=== PATIENT | male | born 1960 | race Two or more races ===

== ENCOUNTER 2025-07-23 12:50 | Emergency (ER) | payer MEDICAID, SELFPAY ==
--- NOTE | 2025-07-23 12:54 | EKG_ITS ---
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
[2025-07-23 13:13] VITALS: BP 134/87; PULSE 108; RESP 18; TEMP 36.7; O2SAT 95; BMI 30.1
--- NOTE | 2025-07-23 13:30 | XR_ITS ---
EXAMINATION: AP chest single view TECHNIQUE: AP portable upright chest single view Date and time: July 23, 2025, 1333 hours INDICATIONS: Syncopal episode today. FINDINGS: Minor scarring in the lingular segment No aspiration pneumonia. Normal heart size IMPRESSION: No aspiration pneumonia
--- NOTE | 2025-07-23 13:31 | PD.EDSYNC ---
ED Syncope RME/HPI General Chief Complaint: Syncope / Near Syncope Stated Complaint: SENT BY PMD FOR SYNCOPAL EPISODE Time Seen by Provider: 07/23/25 13:23 Arrival date/time: 07/23/25 12:50 65-year-old male patient with with significant history of hypertension, taking lisinopril, was brought in by family after patient was seen by PCP for syncope. Patient was talking to his brother while in the [place], suddenly developed dizziness and syncope. Incident happened 2 hours ago. Currently patient is not having any headache no chest pain no abdominal pain no vomiting no diarrhea. Patient is ambulatory. Patient denies any similar episode in the past. Related Data Allergies Allergy/AdvReac Type Severity Reaction Status Date / Time No Known Allergies Allergy Verified 07/23/25 12:51 Review of Systems Review of Systems Narrative Review of Systems: Review of system reviewed and within normal limits except mentioned in HPI ED Exam Narrative Physical exam: VITAL SIGNS: Reviewed. GENERAL APPEARANCE: Alert and interactive, follows commands, no acute distress, HEAD AND FACE: Non-traumatic. ENT: PERRL, pink conjunctivitis, eyelid no trauma, Mucous membrane moist. NECK: Supple, nontender, no nuchal rigidity. CHEST: No tenderness, no crepitus, no paradoxical movement, no retractions. LUNGS: Clear, well ventilated, symmetric, no rales, no wheezing, no ronchi, no stridor, good breath sounds bilaterally. HEART: Regular rate, regular rhythm, no murmur, no gallops. ABDOMEN: Soft, positive bowel sounds, nondistended, no guarding, nontender, no rebound, no masses, RECTAL: Deferred. GENITAL: Deferred. NEUROLOGICAL: Gross motor function intact sensory function intact, Appropriate for age. MUSCULOSKELETAL: low back nontender, full range of motion. EXTREMITIES: Nontender, full range of motion. SKIN: Color pink, dry, no rash, no lacerations, no abrasions, no contusions. LYMPHATICS: Deferred. Course Quality Measures none Orders Category Date Time Status EKG (ED ONLY) *Do not use* NOW Care 07/23/25 12:[address] head/brain wo con Stat Exams 07/23/25 13:33 Completed EKG (ED Only) Stat Exams 07/23/25 12:54 Draft XR chest 1V Stat Exams 07/23/25 13:30 Completed B-Type Natriuretic Peptide Stat Lab 07/23/25 13:42 Completed CBC Stat Lab 07/23/25 13:42 Completed Comprehensive Metabolic Panel Stat Lab 07/23/25 13:42 Completed Partial Thromboplastin Time Stat Lab 07/23/25 13:42 Completed Troponin I Stat Lab 07/23/25 13:42 Completed Urinalysis, C/S if Indicated Stat Lab 07/23/25 14:10 Completed Ringers Lactated 1000 ml [Lactated Ringers] 1,000 ml Med 07/23/25 13:30 Discontinued IV 999 mls/hr Vital Signs Vital signs: Vital Signs Temperature 98.1 F 07/23/25 13:13 Pulse Rate 108 H 07/23/25 13:13 Respiratory Rate 18 07/23/25 13:13 Blood Pressure 134/87 H 07/23/25 13:13 Pulse Oximetry (%) 95 07/23/25 13:13 Oxygen Delivery Method Room Air 07/23/25 13:13 Syncope MDM Narrative MDM Narrative:: 07/23/25 12:50 65-year-old male patient with with significant history of hypertension, taking lisinopril, was brought in by family after patient was seen by PCP for syncope. Patient was talking to his brother while in the [place], suddenly developed dizziness and syncope. Incident happened 2 hours ago. Currently patient is not having any headache no chest pain no abdominal pain no vomiting no diarrhea. Patient is ambulatory. Patient denies any similar episode in the past. Patient's workup today all came back unremarkable except for a blood sugar of 307 with no sign of diabetic ketoacidosis. Patient's EKG showed sinus tachycardia, ventricular rate of 115 bpm, no ST segment elevation or depression noted. Urinalysis no UTI CT scan of the head came back unremarkable I personally reviewed and interpreted the x-ray of this patient. There is no acute abnormalities found, no infiltrates no pneumothorax no hemothorax normal chest x-ray. Review of other structures was without significant abnormal findings also. I additionally reviewed the radiologist report and agree with the interpretation. Patient heart rate was noted to be 108 prior to discharge. Patient is not having any symptoms ambulatory to the restroom with no recurrence of syncope or near syncope. Patient and family was advised to follow-up closely with PCP for elevated blood sugar that was seen today. Patient is probably having diabetes or prediabetic. Patient agrees with the plan. Stable discharge home Patient data External records reviewed:: None Clinical information provided by:: patient Social determinants that could affect healthcare access:: none Patient has the following chronic illnesses:: Hypertension How is presenting disease/condition affected by chronic disease/condition?: exacerbated by Evaluation data The following diagnostics were reviewed and interpreted by me:: lab results, radiology exam(s) and EKG tracing(s) Lab and/or radiology exams considered but not ordered:: None Interpretation Summary: See results MDM Medications / Prescriptions Medications or Prescriptions considered but not ordered:: None Medication administrations:: Medication Administration History Discontinued Medications Lactated Ringer's (Lactated Ringers) 1,000 mls @ 999 mls/hr IV .Q1H1M ONE Stop: 07/23/25 14:30 Last Admin: 07/23/25 14:02 Dose: 999 mls/hr Documented By: KLARISSA IV fluids Consultations Consultation(s) initiated? (list below): No Diagnosis Syncope Differential Diagnosis: syncope due to orthostatic hypotension, vasovagal syncope and dehydration Most likely diagnosis given after review of the tests above:: Vasovagal syncope, Admission Indicated Admission indicated?: not indicated Admission Request Was there a request for admission?: No Disposition Plan Disposition Plan: Discharge Discharge Attestation Discharge Attestation: The patient and all family members were given an opportunity to ask questions and understood the discharge instructions. Discharge instructions specifically effects, indications for sooner follow up or return to the emergency department, and the expected course of current diagnosis. Patient condition: Stable Discharge Plan Plan Patient Disposition: HOME (Self Care) Discharge Disposition comment: stable Prescriptions/Referrals Referrals: Kathy Mares SHEET MET[employer] ENGINEER [Primary Care Provider] - In 1 week Problem List Clinical Impression: Vasovagal syncope Patient/Caregiver Discharge Instructions Discharge Activity: activity as tolerated Education Materials: Understanding Vasovagal Syncope Additional Instructions: Thank you for the opportunity for serving you today. You are stable for discharged . You are advised to: Follow-up with your PCP in 1 to 2 days Return to ED for worsening of symptoms Print Language: Hungarian Stand Alone Forms: Tara Award Info., Patient Portal Info Letter
--- NOTE | 2025-07-23 13:33 | XR_ITS ---
Examination: CT brain head without contrast. 2-D sagittal coronal reconstructions Date and time of exam: July 23, 2025, 1420 hours INDICATIONS: Syncopal episode patient fell today with injury to the head, head pain CTDI: vol (mGy): 50.3 DLP: (mGycm): 986 Technique: Multiple CT axial sections of the brain have been obtained, 5 mm slice thickness. Contrast has not been administered. 2-D sagittal, coronal reconstructions have been obtained Low dose protocols were performed. One or more of the following dose reduction techniques were used; automated exposure control, adjustment of the mA and/or KV according to patient size, use of iterative reconstruction technique. Findings: No significant ventricular enlargement. Intra-axial or extra-axial hemorrhage density is not seen. No mass effect or midline shift Basal cisterns are not remarkable. Fourth ventricle is midline. Cranial vault intact. Impression: Negative for acute hemorrhage, mass effect or midline shift
[2025-07-23 13:59] LABS: Basophils # (Auto) 0.0 Thou/mm3 (0.0-0.2); Basophils % (Auto) 0 % (0-2.5); Eosinophils # (Auto) 0.0 Thou/mm3 (0.0-0.5); Eosinophils % (Auto) 0 % (0-10); Hematocrit 38.7 % (41.0-53.0); Hemoglobin 13.7 g/dL (13.5-16.0); Immature Granulocytes Auto 0.06 Thou/mm3 (0.00-0.00); Lymphocytes # (Auto) 0.8 Thou/mm3 (1.0-4.8); Lymphocytes % (Auto) 6 % (10-50); Mean Corpuscular HGB Conc 35.4 g/dl (31.0-37.0); Mean Corpuscular Hemoglobin 32.2 pg (25.0-35.0); Mean Corpuscular Volume 91 fL (80-100); Monocytes # (Auto) 0.4 Thou/mm3 (0.0-0.8); Monocytes % (Auto) 3 % (0-12); Neutrophils # (Auto) 12.7 Thou/mm3 (1.8-7.7); Neutrophils % (Auto) 91 % (37-80); Nucleated Red Blood Cell # 0.00 Thou/mm3 (0.00-0.00); Nucleated Red Blood Cell % 0 /100 WBC (0); Platelet Count 263 Thou/mm3 (140-440); RDW Standard Deviation 41.8 fL (35.1-43.9); Red Blood Count 4.25 Miln/mm3 (4.50-5.90); White Blood Count 14.0 Thou/mm3 (3.8-10.6)
[2025-07-23] MEDS: RINGERS LACTATED 1000 ML 1,000 ML 999 ML IV (14:02)
[2025-07-23 14:03] LABS: Partial Thromboplastin Time 24.4 Seconds (22.0-36.0)
[2025-07-23 14:07] LABS: B-Type Natriuretic Peptide < 20 pg/mL (0-100)
[2025-07-23 14:09] LABS: Alanine Aminotransferase 14 U/L (10-49); Albumin, Serum 4.7 gm/dL (3.4-4.8); Albumin/Globulin Ratio 2.0 (1.2-2.2); Alkaline Phosphatase 43 U/L (46-116); Anion Gap 9 (7-16); Aspartate Amino Transferase 12 U/L (0-34); BUN/Creatinine Ratio 25 Ratio (12-20); Bilirubin,Total 0.6 mg/dL (0.3-1.2); Blood Urea Nitrogen 28 mg/dL (9-23); Calcium 9.2 mg/dL (8.3-10.6); Calcium (Corrected) 9.2 mg/dL (8.5-10.1); Carbon Dioxide 24.7 mMol/L (20.0-31.0); Chloride 106 mMol/L (98-107); Creatinine (Component) 1.1 mg/dL (0.6-1.3); Estimated Creatinine Clearance 71.9 mL/min (>60); Globulin 2.4 gm/dL (2.3-3.5); Glucose 307 mg/dL (74-106); Osmolality,Calculated 296 (275-295); Potassium 4.9 mMol/L (3.4-5.1); Sodium 140 mMol/L (136-145); Total Protein 7.1 gm/dL (5.7-8.2); Troponin I < 0.002 ng/mL (0.0-0.045); eGFR > 60 See Note
[2025-07-23 14:25] LABS: Collection Type, Urine Clean Catch; Squamous Epithelial Cell,Urine 0 /hpf (0-5); WBC,Urine 0 /hpf (0-5)
[2025-07-23 14:42] LABS: Bilirubin,Urine Negative (Negative); Blood,Urine Negative (Negative); Clarity,Urine Clear (Clear/Hazy); Color,Urine Lt-Yellow (Lt Yel-Yel); Culture Indicated,Urine Not Indicated; Glucose, Urine 4+ (Negative); Ketones,Urine 1+ (Negative); Leukocyte Esterase,Urine Negative (Negative); Nitrite,Urine Negative (Negative); PH,Urine 5.5 (5.0-7.0); Protein,Urine Negative (Neg - Trace); RBC,Urine < 1 /hpf (0-3); Specific Gravity,Urine 1.030 (1.001-1.035); Urobilinogen,Urine Negative mg/dL (0.0-1.0)
[2025-07-23 17:15] VITALS: BP 123/79; PULSE 100; RESP 18; TEMP 36.6; O2SAT 97
== END 2025-07-23 17:16 | disposition home or self-care (01) ==
PROVIDERS: Nurse Practitioner Family; Emergency Provider Family Medicine; PCP Nurse Practitioner Family
DX: R55 Syncope and collapse (principal); I10 Essential (primary) hypertension
CPT/HCPCS: 36415; 70450; 71045; 80053; 81001; 83880; 84484; 85025; 85730; 93005; 96360; 96361; 99283; J7120